=== PATIENT | male | born 1990 | race Caucasian/White ===

== ENCOUNTER 2018-12-07 11:27 | Emergency (ER) | payer SELFPAY ==
[2018-12-07] MEDS ORDERED: KETOROLAC 30 MG/ML VIAL IM ONE (11:38)
--- NOTE | 2018-12-07 11:42 | Emergency Department Record ---
History of Present Illness - General Chief Complaint: Back Pain/Injury Stated Complaint: LOWER BACK PAIN Time Seen by Provider: 12/07/18 11:32 Source: Patient Mode of Arrival: Ambulatory Limitations: No limitations - History of Present Illness Initial Comments: The patient is here due to R lower back pain that occurred about an hour ago at work. He was bending over and pushing a large tree stump when he felt a pull and pain in the R lower back. The pain is much worse with any movement, standing and stretching. He denies any leg numbness, weakness, or any bowel or bladder issues. The patient is able to ambulate with no leg weakness. There was no trauma or fall. MD Complaint: Back pain Onset/Timin -: Hour(s) Similar Symptoms Previously: No Place: Work Radiation: None Severity: Moderate Severity scale (1-10): 8 Consistency: Constant Improves With: None Worsens With: Sitting upright, Walking Context: Bending, Other Associated Symptoms: Denies other symptoms - Related Data Previous Rx's Medication Instructions Recorded Cyclobenzaprine HCl [Flexeril] 10 mg PO TID PRN #20 tablet 12/07/18 Naproxen [Naprosyn] 500 mg PO BID #14 tablet. 12/07/18 Allergies Allergy/AdvReac Type Severity Reaction Status Date / Time No Known Allergies Allergy Unverified 10/09/17 13:38 Travel Screening - Travel/Exposure Within Last 30 Days Have you traveled within the last 30 days?: No Review of Systems Constitutional: Denies: Chills, Fever Eyes: Denies: Eye discharge ENT: Denies: Congestion Respiratory: Denies: Cough, Dyspnea Past Medical History - SOCIAL HISTORY Smoking Status: Never smoker Alcohol Use: None Drug Use: None - RESPIRATORY Hx Respiratory Disorders: No - CARDIOVASCULAR Hx Cardio Disorders: No - NEURO Hx Neuro Disorders: No - GI Hx GI Disorders: No - Hx Genitourinary Disorders: No - ENDOCRINE Hx Endocrine Disorders: No - MUSCULOSKELETAL Hx Musculoskeletal Disorders: No - PSYCH Hx Psych Problems: No - HEMATOLOGY/ONCOLOGY Hx Hematology/Oncology Disorders: No Family Medical History Any Significant Family History?: No Physical Exam - General General Appearance: Alert, Oriented x3, Cooperative, No acute distress - Head Head exam: Atraumatic, Normocephalic, Normal inspection - Neck Neck exam: Normal inspection, Full ROM. negative: Tenderness - Respiratory Respiratory exam: Normal lung sounds bilaterally. negative: Respiratory distress - Cardiovascular Cardiovascular Exam: Regular rate, Normal rhythm, Normal heart sounds - GI/Abdominal GI/Abdominal exam: Soft, Normal bowel sounds. negative: Tenderness - Extremities Extremities exam: Normal inspection, Full ROM. negative: Tenderness - Back Back exam: Reports: Normal inspection, Full ROM, Paraspinal tenderness (There is paraspinal tenderness over the R L3-5 area.). Denies: Muscle spasm, Rash noted, Tenderness, Vertebral tenderness - Neurological Neurological exam: Alert, Normal gait, Oriented X3, Reflexes normal (The patellar and achilles reflexes are brisk and equal bilaterally.), Other (Neg SLR bilaterally.). negative: Abnormal gait, Altered, Motor sensory deficit - Skin Skin exam: negative: Rash Course Vital Signs 12/07/18 12/07/18 11:30 11:35 Temperature 98.0 F Pulse Rate [ 75 Pulse Ox Probe] Respiratory 16 Rate Blood Pressure 136/77 [Left Arm] Pulse Ox 99 - Reevaluation(s) Reevaluation #1: The patient is doing a lot better at this time. He is up walking with very minimal difficulty. He is instructed to go home and rest today and to see his Occupational Health provider Monday if not better. 12/07/18 12:00 Disposition Disposition: Discharge Clinical Impression: Lumbar strain Qualifiers: Encounter type: initial encounter Qualified Code(s): S39.012A - Strain of muscle, fascia and tendon of lower back, initial encounter Disposition: Home, Self-Care Condition: (2) Stable Instructions: Low Back Strain (ED) Additional Instructions: Please rest the next 3 days and please take the Naprosyn and Flexeril as directed. Please see your family doctor or Occupational Health provider on Monday if not better. Return to the ER for any worsening pain, leg numbness, weakness, or any bowel or bladder difficulty. Prescriptions: Cyclobenzaprine HCl [Flexeril] 10 mg PO TID PRN #20 tablet PRN Reason: Pain Naproxen [Naprosyn] 500 mg PO BID #14 tablet.dr Forms: Patient Portal Access Time of Disposition: 12:05 Quality - Quality Measures Quality Measures: N/A - Blood Pressure Screening View Details: Yes Does Patient Have Any of the Following: No Blood Pressure Classification: Pre-Hypertensive BP Reading Systolic Measurement: 136 Diastolic Measurement: 77 Screening for High Blood Pressure: < Pre-Hypertensive BP, F/U Documented > [[id number]] Pre-Hypertensive Follow-up Interventions: Referral to alternative/primary care provider.
== END 2018-12-07 12:15 | disposition home or self-care (01) ==
LOC: ER 11:27
DX: S39.012A Strain of muscle, fascia and tendon of lower back, initial encounter (principal); X50.9XXA Other and unspecified overexertion or strenuous movements or postures, initial encounter; Y93.H9 Activity, other involving exterior property and land maintenance, building and construction; Y99.0 Civilian activity done for income or pay
CPT/HCPCS: 99284; J1885